=== PATIENT | male | born 1945 | race African-American/Black ===

== ENCOUNTER 2017-06-28 10:54 | Emergency (ER) | payer OTHER, MEDICAID ==
[~2017-06-28] VITALS: Ht 190.5 cm; Wt 82.0 kg
[2017-06-28] MEDS ORDERED: LOSA50TA20 PO (11:44)
[2017-06-28 14:44] LABS: CLARITY URINE TURBID (CLEAR); COLOR URINE YELLOW (YELLOW); KETONES URINE NEGATIVE (NEGATIVE); LEUKOCYTE ESTERASE URINE 3+ (NEGATIVE); NITRITE URINE POSITIVE (NEGATIVE); OCCULT BLOOD URINE 1+ (NEGATIVE); PROTEIN URINE NEGATIVE (NEGATIVE); SPECIFIC GRAVITY URINE 1.028 (1.005-1.030); UROBILINOGEN URINE 0.2 E.U./dL (0.2-1.0)
[2017-06-28 14:47] LABS: BASOPHILS % 0.3 % (0.0-2.0); EOSINOPHILS % 1.2 % (0.0-5.0); HEMATOCRIT. 41.4 % (42.0-52.0); LYMPHOCYTES % 34.5 % (20.0-50.0); MEAN CORPUSCULAR HEMOGLOBIN 30.6 pg (28.0-32.0); MEAN CORPUSCULAR VOLUME 90.2 fL (80.0-94.0); MEAN PLATELET VOLUME 7.3 fl (7.4-10.4); MONOCYTES % 6.9 % (2.0-8.0); NEUTROPHILS % 57.1 % (40.0-76.0); PLATELET 180 x1000/uL (130-400); RED BLOOD CELL COUNT 4.59 mill/uL (4.7-6.1); RED CELL DISTRIBUTION WIDTH 14.1 % (11.6-14.6)
[2017-06-28 14:54] LABS: INR 1.1; PROTHROMBIN TIME 11.2 sec (9.4-11.6)
[2017-06-28 15:00] LABS: CARBON DIOXIDE 29 mEq/L (21-32); CHLORIDE 105 mEq/L (98-107)
[2017-06-28] MEDS ORDERED: CEFTRIAXONE 1 G PREMIX 50 ML IV ONE (15:15)
[2017-06-28 17:37] VITALS: BP 153/75
== END 2017-06-28 17:42 | disposition home or self-care (01) ==
LOC: ER 12:52
DX: N39.0 Urinary tract infection, site not specified (principal); I10 Essential (primary) hypertension; F17.200 Nicotine dependence, unspecified, uncomplicated
CPT/HCPCS: 36415; 74176; 80053; 81001; 83690; 85025; 85610; 87077; 87086; 87186; 96365; 96366; 99285; J0696

== ENCOUNTER 2025-04-01 16:55 | Emergency (ER) | payer MEDICARE, MEDICAID ==
[~2025-04-01] VITALS: Ht 170.2 cm; Wt 85.0 kg
[~2025-04-01 16:55] MED LIST: LOSA50TA41 PO
[2025-04-01 16:59] VITALS: O2SAT 100
[2025-04-01 17:04] VITALS: BP 161/91; PULSE 60; RESP 16; TEMP 36.8; O2SAT 99
[2025-04-01 18:05] LABS: GLUCOSE URINE NEGATIVE (NEGATIVE); KETONES URINE TRACE (NEGATIVE)
[2025-04-01 18:26] LABS: CLARITY URINE CLOUDY (CLEAR); COLOR URINE DARK YELLOW (YELLOW); PH URINE 5.5 (4.5-8.0); SPECIFIC GRAVITY URINE 1.023 (1.005-1.030)
[2025-04-01 18:27] LABS: PROTEIN URINE 1+ (NEGATIVE)
[2025-04-01 18:28] LABS: LEUKOCYTE ESTERASE URINE 3+ (NEGATIVE); NITRITE URINE POSITIVE (NEGATIVE); OCCULT BLOOD URINE 2+ (NEGATIVE); UROBILINOGEN URINE 1.0 E.U./dL (0.2-1.0)
[2025-04-01 18:58] LABS: RBC URINE 0-2 /hpf (0-2); WBC URINE TNTC /hpf (0-2)
[2025-04-01 18:59] LABS: BACTERIA URINE 3+; SQUAMOUS EPITHELIAL CELL URINE 1+ /lpf (RARE/1+)
[2025-04-01 19:00] LABS: MUCUS URINE 1+ /lpf (NONE/TRACE)
== END 2025-04-01 19:56 | disposition left against medical advice (07) ==
LOC: ER 16:55
DX: R03.0 Elevated blood-pressure reading, without diagnosis of hypertension (principal); Z79.899 Other long term (current) drug therapy
CPT/HCPCS: 36415; 81003; 81025; 87077; 87186; 96372; 99281; 99283